=== PATIENT | female | born 1940 | race African-American/Black ===

== ENCOUNTER → 2021-08-05 | Outpatient (CLI) | payer MEDICARE | LOC: LAB 11:46 | PROVIDERS: ATTEND Psychiatry & Neurology Neurology with Special Qualifications in Child Neurology | DX: G30.1 Alzheimer's disease with late onset (principal); F02.80 Dementia in other diseases classified elsewhere, unspecified severity, without behavioral disturbance, psychotic disturbance, mood disturbance, and anxiety | CPT/HCPCS: 36415; 82607; 84443; 85651 ==